=== PATIENT | female | born 1945 | race Hispanic/Latino ===

== ENCOUNTER 2017-06-26 16:42 | Emergency (ER) | payer MEDICARE ==
[2017-06-26 16:43] VITALS: BMI 23.2
[2017-06-26 16:52] VITALS: TEMP 98; O2SAT 98
--- NOTE | 2017-06-26 17:51 | ED PDOC ---
Arrival/HPI <Juan Manuel Vera - Last Filed: 06/26/17 18:39> <Aldo Anglin - Last Filed: 06/26/17 21:26> - General Chief Complaint: Trauma Time Seen by Provider: 06/26/17 16:59 - History of Present Illness Narrative History of Present Illness (Text): 71F c/o pain in her left arm after a fall a couple days ago. she says she was bring her dogs into her apartment when she tripped on a step and fell on her left side. she denies head injury or LOC. she did not want to come in initially but her arm has becoming progressively more painful and swollen. she has taken ibuprofen only for pain. contrary to triage note the pt denies being "more confused than usual." she states she is forgetful at times but that "this is nothing new." (Juan Manuel Vera) Past Medical History - Infectious Disease Hx of Infectious Diseases: None - Cardiac Hx Cardiac Disorders: Yes Hx Pacemaker: No Other/Comment: stents x2 - Pulmonary Hx Respiratory Disorders: No - Neurological Hx Neurological Disorder: No Hx Paralysis: No Other/Comment: increased confusion today 06/26/2017 - HEENT Hx HEENT Disorder: No - Renal Hx Renal Disorder: No - Endocrine/Metabolic Hx Endocrine Disorders: No - Hematological/Oncological Hx Blood Transfusions: No Hx Blood Transfusion Reaction: No - Integumentary Hx Dermatological Disorder: No - Musculoskeletal/Rheumatological Hx Musculoskeletal Disorders: Yes (KNEES) - Gastrointestinal Hx Gastrointestinal Disorders: No - Genitourinary/Gynecological Hx Genitourinary Disorders: No - Psychiatric Hx Psychophysiologic Disorder: No Hx Substance Use: No - Surgical History Hx Cataract Extraction: Yes Hx Coronary Stent: Yes (x2) Other/Comment: stents placed, - Anesthesia Hx Anesthesia: Yes Hx Anesthesia Reactions: No Hx Malignant Hyperthermia: No <Juan Manuel Vera - Last Filed: 06/26/17 18:39> Family/Social History Family/Social History: Other (nc) Smoking Status: Never Smoked Hx Alcohol Use: No Hx Substance Use: No <Juan Manuel Vera - Last Filed: 06/26/17 18:39> Allergies/Home Meds <Juan Manuel Vera - Last Filed: 06/26/17 18:39> <Aldo Anglin - Last Filed: 06/26/17 21:26> Allergies/Adverse Reactions: Allergies acetaminophen [From Percocet] Allergy (Verified 06/26/17 16:51) SHORTNESS OF BREATH adhesive Allergy (Verified 06/26/17 16:51) ITCHING caffeine Allergy (Verified 06/26/17 16:51) SHORTNESS OF BREATH nitroglycerin Allergy (Verified 06/26/17 16:51) SHORTNESS OF BREATH oxycodone [From Percocet] Allergy (Verified 06/26/17 16:51) SHORTNESS OF BREATH Home Medications: Home Meds Medication Instructions Recorded Confirmed Aspirin 325 mg PO DAILY 05/15/13 06/26/17 Furosemide [Lasix] 40 mg PO DAILY 05/15/13 06/26/17 Metoprolol Tartrate [Lopressor] 50 mg PO DAILY 05/15/13 06/26/17 Simvastatin 80 mg PO DAILY 05/15/13 06/26/17 diltiaZEM CD [Cardizem CD] 120 mg PO DAILY 05/15/13 06/26/17 diaZEpam [Valium] 2 mg PO DAILY 06/26/17 06/26/17 Review of Systems - Review of Systems Constitutional: absent: Fevers Respiratory: absent: SOB Cardiovascular: absent: Chest Pain Gastrointestinal: absent: Abdominal Pain, Nausea, Vomiting Musculoskeletal: absent: Back Pain, Neck Pain Neurological: absent: Headache, Dizziness, Focal Weakness <Juan Manuel Vera - Last Filed: 06/26/17 18:39> Physical Exam Vital Signs Reviewed: Yes Appearance: Positive for: Well-Appearing, Non-Toxic, Comfortable Pain Distress: None Mental Status: Positive for: Alert and Oriented X 3 - Systems Exam Head: Present: Atraumatic. No: Tenderness, Contusion, Swelling, Ecchymosis, Abrasion, Laceration Pupils: Present: PERRL Mouth: Present: Moist Mucous Membranes Nose (Internal): No: Epistaxis Neck: Present: Normal Range of Motion. No: MIDLINE TENDERNESS Respiratory/Chest: Present: Clear to Auscultation, Other (ecchymoses left lateral chest wall). No: Respiratory Distress, Accessory Muscle Use Cardiovascular: Present: Regular Rate and Rhythm Abdomen: No: Tenderness, Distention Back: Present: Other (small ecchymosis left mid back). No: Midline Tenderness Upper Extremity: Present: NORMAL PULSES, Neurovascularly Intact, Other (left upper arm is diffusely ecchymotic and LUE is edematous. ROM is decreased due to pain. there is also ecchymosis of the left breast. ) Lower Extremity: Present: NORMAL PULSES, Normal ROM. No: Edema Neurological: Present: GCS=15, CN II-XII Intact, Motor Func Grossly Intact, Normal Sensory Function Skin: Present: Warm, Dry Psychiatric: Present: Alert, Oriented x 3 <Juan Manuel Vera - Last Filed: 06/26/17 18:39> Vital Signs Temp Pulse Resp BP Pulse Ox 06/26/17 20:33 79 16 123/78 98 06/26/17 16:51 98.0 F 82 19 120/71 98 Medical Decision Making <Juan Manuel Vera - Last Filed: 06/26/17 18:39> - RAD Interpretation Substance Abuse Services Director: Radiologist <Aldo Anglin - Last Filed: 06/26/17 21:26> ED Course and Treatment: 06/26/17 18:[address] Clemens- rec CT and sling and he will see in the office tomorrow. Disc plan w pt who v/u and agrees w plan. (Juan Manuel Vera) 06/26/17 19:30 Case endorsed to me from .Pt. with dx. humeral fx. on X-ray.Occurred days ago.Dr. Vera had discussed case with the PMD and orthopedist . requested a CT scan prior to d/c home. 06/26/17 21:[address] scan noted.Results d/w .Again requests pt. be d/c for follow up in his office tomorrow.Arm sling.Non recumbent position at home.Pt. agrees with follow up . (Aldo Anglin) - Lab Interpretations Lab Results: 06/26/17 18:36 06/26/17 18:36 Lab Results 06/26/17 18:36: PT 12.7 H, INR 1.16 H, APTT 22.1 L 06/26/17 18:36: Sodium 138, Potassium 2.8 L* D, Chloride 106, Carbon Dioxide 20 L, Anion Gap 15, BUN 13, Creatinine 0.8, Est GFR ( Amer) > 60, Est GFR ( Non-Af Amer) > 60, Random Glucose 114 H, Calcium 9.7, Total Bilirubin 1.2, AST 47 H, ALT 27, Alkaline Phosphatase 100, Troponin I 0.02, Total Protein 6.9, Albumin 4.2, Globulin 2.8, Albumin/Globulin Ratio 1.5 06/26/17 18:36: WBC 15.3 H D, RBC 3.26 L, Hgb 9.8 L, Hct 29.1 L, MCV 89.3, MCH 30.1, MCHC 33.7, RDW 13.8, Plt Count 373, MPV 9.8, Gran % 81.9 H, Lymph % (Auto ) 6.7 L, [place] % (Auto) 11.1 H, Eos % (Auto) 0.2 L, Baso % (Auto) 0.1, Gran # 12.53 H, Lymph # 1.0 L, [place] # 1.7 H, Eos # 0.0, Baso # 0.01 06/26/17 18:30: Blood Type O POSITIVE, Antibody Screen Negative, BBK History Checked Patient has bt - RAD Interpretation Narrative RAD Interpretations (Text): 06/26/17 21:15 CT Scan-IMPRESSION: 1. There is comminuted fracture of the proximal humerus, with displacement of fracture fragments. There is a fracture and possible erosion of the humeral head, with impaction. There is fracture and displacement of the greater tuberosity. The left femoral neck is fractured. 2. There is widening of the left glenohumeral joint, with inferior subluxation of the humeral head relative to the glenoid process. 3. Multiple mineralized loose bodies are identified surrounding the left shoulder and within the glenohumeral joint, consistent with calcifications and/or fracture fragments. 4. Left acromioclavicular arthropathy is identified. 5. There is soft tissue swelling of the left shoulder. (Aldo Anglin) Radiology Orders: 06/26/17 17:37 HEAD W/O CONTRAST [CT] Stat HUMERUS LEFT [RAD] Stat 06/26/17 17:44 CHEST ONE VIEW [RAD] Stat 06/26/17 18:35 EXT UPPER W/O CONTRAST LEFT [CT] Stat - Medication Orders Current Medication Orders: Discontinued Medications Ibuprofen (Motrin Tab) 800 mg PO STAT STA Stop: 06/26/17 17:40 Last Admin: 06/26/17 17:52 Dose: 800 mg Potassium Chloride (K-Dur 20 Meq Er Tab) 40 meq PO STAT STA Stop: 06/26/17 19:06 Last Admin: 06/26/17 19:17 Dose: 40 meq Disposition/Present on Arrival - Present on Arrival History of DVT/PE: No History of Uncontrolled Diabetes: No Urinary Catheter: No History of Decub. Ulcer: No History Surgical Site Infection Following: None <Juan Manuel Vera - Last Filed: 06/26/17 18:39> - Present on Arrival Any Indicators Present on Arrival: No - Disposition Have Diagnosis and Disposition been Completed?: Yes Disposition Time: 21:25 Patient Plan: Discharge <Aldo Anglin - Last Filed: 06/26/17 21:26> - Disposition Diagnosis: Humerus surgical neck fracture Disposition: HOME/ ROUTINE Condition: STABLE Additional Instructions: Please follow up with Dr Clemens tomorrow: call his office at 10am to make an appointment the same day. Wear your sling and sleep with your upper body upright. Return to the ER for any numbness, weakness, severe pain, or for any other concerns. Referrals: Isaac Clemens DO [Staff Provider] - Follow up with primary Forms: [employer] (Citizen [place])
--- NOTE | 2017-06-26 18:30 | CT ---
PROCEDURE: CT HEAD WITHOUT CONTRAST. HISTORY: fall COMPARISON: None available. TECHNIQUE: Axial computed tomography images were obtained through the head/brain without intravenous contrast. Radiation dose: Total exam DLP = 747 mGy-cm. This CT exam was performed using one or more of the following dose reduction techniques: Automated exposure control, adjustment of the mA and/or kV according to patient size, and/or use of iterative reconstruction technique. FINDINGS: HEMORRHAGE: No intracranial hemorrhage. BRAIN: No mass effect or edema. No atrophy or chronic microvascular ischemic changes. VENTRICLES: Unremarkable. No hydrocephalus. CALVARIUM: Unremarkable. PARANASAL SINUSES: Unremarkable as visualized. No significant inflammatory changes. MASTOID AIR CELLS: Unremarkable as visualized. No inflammatory changes. OTHER FINDINGS: None. IMPRESSION: No acute finding
[2017-06-26 18:58] LABS: ALB/GLOB RATIO 1.5 (1.1-1.8); ALKALINE PHOSPHATASE 100 U/L (38-126); ALT/SGPT 27 U/L (7-56); AST/SGOT 47 U/L (14-36); BILIRUBIN,TOTAL 1.2 mg/dL (0.2-1.3); BLOOD UREA NITROGEN 13 mg/dL (7-21); CALCIUM 9.7 mg/dL (8.4-10.5); CARBON DIOXIDE 20 mmol/L (21-33); CHLORIDE 106 mmol/L (98-107); GFR AFRICAN-AMERICAN > 60; GLUCOSE,RANDOM 114 mg/dL (70-110); SODIUM 138 mmol/L (132-148); TOTAL PROTEIN 6.9 g/dL (5.8-8.3)
[2017-06-26 19:00] LABS: INR 1.16 (0.93-1.08); PARTIAL THROMBOPLASTIN TIME 22.1 Seconds (25.1-36.5)
[2017-06-26] MEDS ORDERED: Potassium Chloride 20 mEq ER Tab PO STA (19:05)
[2017-06-26 19:09] LABS: BASO # 0.01 K/mm3 (0.0-2.0); BASO % 0.1 % (0.0-3.0); EOS % 0.2 % (1.5-5.0); GRAN # 12.53 (1.4-6.5); GRAN % 81.9 % (50.0-68.0); HEMATOCRIT 29.1 % (36.0-48.0); LYMPH % 6.7 % (22.0-35.0); MEAN CELL VOLUME 89.3 fl (80.0-105.0); MEAN CORPUSCULAR HEMOGLOBIN 30.1 pg (25.0-35.0); MEAN CORPUSCULAR HGB CONC 33.7 g/dl (31.0-37.0); MEAN PLATELET VOLUME 9.8 fl (7.0-11.0); MONO # 1.7 (0.1-0.6); MONO % 11.1 % (1.0-6.0); RED CELL DISTRIBUTION WIDTH 13.8 % (11.5-14.5); TROPONIN I 0.02 ng/mL; WHITE BLOOD COUNT 15.3 10^3/ul (4.5-11.0)
[2017-06-26 19:38] LABS: POTASSIUM 2.8 mmol/L (3.6-5.0)
[2017-06-26 20:33] VITALS: BP 123/78; PULSE 79; RESP 16
--- NOTE | 2017-06-26 21:07 | CT ---
EXAM: CT Left Upper Extremity Without Intravenous Contrast, Shoulder EXAM DATE/TIME: 06/26/2017 6:35 PM CLINICAL HISTORY: The patient age is 71 years old and is female; Injury or trauma; Fall; Initial encounter; Blunt trauma (contusions or hematomas; Shoulder; Left; Additional info: Left shoulder fracture, ? dislocation Facility exam id and description: Ct extupsl ext upper w/o contrast left TECHNIQUE: Axial computed tomography images of the left shoulder without intravenous contrast. All CT scans at this facility use one or more dose reduction techniques, viz.: automated exposure control; ma/kV adjustment per patient size (including targeted exams where dose is matched to indication; i.e. head); or iterative reconstruction technique. Coronal and sagittal reformatted images were created and reviewed. COMPARISON: DX - HUMERUS LEFT 2017-06-26 17:52 FINDINGS: Bones/joints: There is comminuted fracture of the proximal humerus, with displacement of fracture fragments. There is a fracture and possible erosion of the humeral head, with impaction. There is fracture and displacement of the greater tuberosity. The left femoral neck is fractured. There is widening of the left glenohumeral joint, with inferior subluxation of the humeral head relative to the glenoid process. Multiple mineralized loose bodies are identified surrounding the left shoulder and within the glenohumeral joint, consistent with calcifications and/or fracture fragments. Left acromioclavicular arthropathy is identified. No visualized acute fracture of the glenoid process, lateral aspect of the clavicle, and acromion process. Soft tissues: There is soft tissue swelling of the left shoulder. IMPRESSION: 1. There is comminuted fracture of the proximal humerus, with displacement of fracture fragments. There is a fracture and possible erosion of the humeral head, with impaction. There is fracture and displacement of the greater tuberosity. The left femoral neck is fractured. 2. There is widening of the left glenohumeral joint, with inferior subluxation of the humeral head relative to the glenoid process. 3. Multiple mineralized loose bodies are identified surrounding the left shoulder and within the glenohumeral joint, consistent with calcifications and/or fracture fragments. 4. Left acromioclavicular arthropathy is identified. 5. There is soft tissue swelling of the left shoulder.
--- NOTE | 2017-06-27 11:00 | RAD ---
PROCEDURE: Radiographs of the left humerus. HISTORY: fall pain COMPARISON: None. FINDINGS: BONES: There is an impacted comminuted fracture of the neck of the humerus. The age of this is uncertain. There are no prior studies SOFT TISSUES: Normal. OTHER FINDINGS: None. IMPRESSION: There is an impacted comminuted fracture of the neck of the humerus. The age of this is uncertain. There are no prior studies
--- NOTE | 2017-06-27 11:01 | RAD ---
PROCEDURE: CHEST RADIOGRAPH, 1 VIEW HISTORY: fall chest contusion COMPARISON: None available. FINDINGS: LUNGS: Clear. PLEURA: No pneumothorax or pleural fluid seen. CARDIOVASCULAR: Normal. OSSEOUS STRUCTURES: No significant abnormalities. VISUALIZED UPPER ABDOMEN: Normal. OTHER FINDINGS: None. IMPRESSION: No active disease.
--- NOTE | 2017-06-27 17:05 | CARD ---
APPROVED REPORT EKG Measurement Heart [id number] <Conclusion> Normal sinus rhythm Left bundle branch block Abnormal ECG
== END 2017-06-26 21:31 | disposition home or self-care (01) ==
LOC: ED 16:42
DX: S42.212A Unspecified displaced fracture of surgical neck of left humerus, initial encounter for closed fracture (principal); W01.0XXA Fall on same level from slipping, tripping and stumbling without subsequent striking against object, initial encounter

== ENCOUNTER 2018-10-09 18:36 | Inpatient (IN) | payer MEDICARE, OTHER ==
[2018-10-09 18:36] VITALS: BMI 23.4
--- NOTE | 2018-10-09 20:34 | ED PDOC ---
Arrival/HPI - General Chief Complaint: Lower Extremity Problem/Injury Time Seen by Provider: 10/09/18 19:33 Historian: Patient - History of Present Illness Narrative History of Present Illness (Text): 10/09/18 20:34 Nilda Riley is a 72 year old female, whose past medical history includes CAD with stents, who presents to the emergency department complaining of left leg pain. Patient states she fell while standing on a step stool tonight. Patient now complaining of left knee pain and swelling. Patient denies any weakness/numbness/tingling in the extremities, other trauma/injuries, or any other complaints. Symptom Onset: Gradual Symptom Course: Unchanged Activities at Onset: Light Context: Home Past Medical History - Provider Review Nursing Documentation Reviewed: Yes - Infectious Disease Hx of Infectious Diseases: None - Cardiac Hx Cardiac Disorders: Yes Hx Pacemaker: No Other/Comment: stents x2 - Pulmonary Hx Respiratory Disorders: No - Neurological Hx Neurological Disorder: No Hx Paralysis: No Other/Comment: increased confusion today 06/26/2017 - HEENT Hx HEENT Disorder: No - Renal Hx Renal Disorder: No - Endocrine/Metabolic Hx Endocrine Disorders: No - Hematological/Oncological Hx Blood Transfusions: No Hx Blood Transfusion Reaction: No - Integumentary Hx Dermatological Disorder: No - Musculoskeletal/Rheumatological Hx Musculoskeletal Disorders: Yes (KNEES) - Gastrointestinal Hx Gastrointestinal Disorders: No - Genitourinary/Gynecological Hx Genitourinary Disorders: No - Psychiatric Hx Psychophysiologic Disorder: No Hx Substance Use: No - Surgical History Hx Cardiac Catheterization: Yes (stents x2) - Anesthesia Hx Anesthesia: Yes Hx Anesthesia Reactions: No Hx Malignant Hyperthermia: No Family/Social History - Physician Review Nursing Documentation Reviewed: Yes Family/Social History: Unknown Family HX Smoking Status: Never Smoked Hx Alcohol Use: No Hx Substance Use: No Allergies/Home Meds Allergies/Adverse Reactions: Allergies acetaminophen [From Percocet] Allergy (Verified 06/26/17 16:51) SHORTNESS OF BREATH adhesive Allergy (Verified 06/26/17 16:51) ITCHING caffeine Allergy (Verified 06/26/17 16:51) SHORTNESS OF BREATH nitroglycerin Allergy (Verified 06/26/17 16:51) SHORTNESS OF BREATH oxycodone [From Percocet] Allergy (Verified 06/26/17 16:51) SHORTNESS OF BREATH Home Medications: Home Meds Medication Instructions Recorded Confirmed Metoprolol Tartrate [Lopressor] 50 mg PO DAILY 05/15/13 10/09/18 diaZEpam [Valium] 2 mg PO BID 06/26/17 10/09/18 Simvastatin [Zocor] 80 mg PO DAILY 07/03/18 10/09/18 Review of Systems - Physician Review All systems were reviewed & negative as marked: Yes - Review of Systems Constitutional: Normal. absent: Fevers Eyes: Normal ENT: Normal Respiratory: Normal. absent: SOB, Cough Cardiovascular: Normal. absent: Chest Pain Gastrointestinal: Normal. absent: Abdominal Pain, Diarrhea, Nausea, Vomiting Genitourinary Female: Normal. absent: Dysuria, Frequency, Hematuria, Urine Output Changes Musculoskeletal: Arthralgias (+left leg pain). absent: Back Pain, Neck Pain Skin: Normal. absent: Rash Neurological: Normal. absent: Headache, Dizziness Endocrine: Normal Hemo/Lymphatic: Normal Psychiatric: Normal Physical Exam Vital Signs Reviewed: Yes Vital Signs Temp Pulse Resp BP Pulse Ox 10/09/18 18:55 97.7 F 70 18 130/82 97 Temperature: Afebrile Blood Pressure: Normal Pulse: Regular Respiratory Rate: Normal Appearance: Positive for: Well-Appearing, Non-Toxic, Comfortable Pain Distress: None Mental Status: Positive for: Alert and Oriented X 3 - Systems Exam Head: Present: Atraumatic, Normocephalic Pupils: Present: PERRL Extroacular Muscles: Present: EOMI Conjunctiva: Present: Normal Mouth: Present: Moist Mucous Membranes Neck: Present: Normal Range of Motion Respiratory/Chest: Present: Clear to Auscultation, Good Air Exchange. No: Respiratory Distress, Accessory Muscle Use Cardiovascular: Present: Regular Rate and Rhythm, Normal S1, S2. No: Murmurs Abdomen: No: Tenderness, Distention, Peritoneal Signs Back: Present: Normal Inspection Upper Extremity: Present: Normal Inspection. No: Cyanosis, Edema Lower Extremity: Present: Swelling (Swelling to left knee). No: Edema Neurological: Present: GCS=15, CN II-XII Intact, Speech Normal Skin: Present: Warm, Dry, Normal Color. No: Rashes Psychiatric: Present: Alert, Oriented x 3, Normal Insight, Normal Concentration Medical Decision Making ED Course and Treatment: Impression: 72 year old female complaining of left knee pain/swelling. Plan: -- EKG -- CXR -- XR Left Femur -- XR Left Tibia/Fibula -- Labs, troponin -- Toradol -- Reassess and disposition Prior Visits: Notes and results from previous visits were reviewed. Progress Notes: 10/09/18 20:25 Reviewed radiology, CXR shows no acute processes. XR Left Femur showed left distal femur fracture. XR Left Tibia/Fibula shows no acute processes. 10/09/18 20:[address] Ortiz, orthopedist, who is aware and agrees to consult on case. Pt placed in knee immobilizer. 10/09/18 21:15 Reviewed EKG, NSR at [address] bpm. LBBB. Non-specific ST/T wave changes. 10/09/18 22:[address] Carranza, who is aware and agrees with plan. Accepts pt in to her service. Pt [facility] be [facility] to [facility] for left femur fracture. - Lab Interpretations I have reviewed the lab results: Yes - RAD Interpretation Radiology Orders: 10/09/18 19:38 Femur Left [FEMUR MIN 2 VIEWS LT] [RAD] Stat 10/09/18 19:39 TIBIA FIBULA LEFT [RAD] Stat Security Auditor: ED Physician - EKG Interpretation Interpreted by ED Physician: Yes Type: 12 lead EKG - Medication Orders Current Medication Orders: Discontinued Medications Ketorolac Tromethamine (Toradol) 15 mg IM STAT STA Stop: 10/09/18 19:40 Last Admin: 10/09/18 19:57 Dose: 15 mg MAR Pain Assessment Document 10/09/18 19:57 AD (Rec: 10/09/18 19:58 AD [id number]) Pain Reassessment Is this a pain reassessment? No Presence of Pain Presence of Pain Yes IM Administration Charges Document 10/09/18 19:57 AD (Rec: 10/09/18 19:58 AD [id number]) Injection Site MAR Injection Site Right Deltoid Charges for Administration # of IM Administrations 1 - Scribe Statement The provider has reviewed the documentation as recorded by the Giacomo Shaver Provider Scribe Attestation: All medical record entries made by the Scribe were at my direction and personally dictated by me. I have reviewed the chart and agree that the record accurately reflects my personal performance of the history, physical exam, medical decision making, and the department course for this patient. I have also personally directed, reviewed, and agree with the discharge instructions and disposition. Disposition/Present on Arrival - Present on Arrival Any Indicators Present on Arrival: No History of DVT/PE: No History of Uncontrolled Diabetes: No Urinary Catheter: No History of Decub. Ulcer: No History Surgical Site Infection Following: None - Disposition Have Diagnosis and Disposition been Completed?: Yes Diagnosis: Femur fracture, left Disposition: HOSPITALIZED Disposition Time: 22:50 Condition: FAIR
[2018-10-09 21:59] LABS: BASO # 0.02 K/mm3 (0.0-2.0); BASO % 0.1 % (0.0-3.0); HEMOGLOBIN 10.9 g/dL (12.0-16.0); LYMPH # 0.9 (1.2-3.4); LYMPH % 4.3 % (22.0-35.0); MEAN CELL VOLUME 87.7 fl (80.0-105.0); MEAN CORPUSCULAR HEMOGLOBIN 29.2 pg (25.0-35.0); MEAN CORPUSCULAR HGB CONC 33.3 g/dl (31.0-37.0); MEAN PLATELET VOLUME 9.3 fl (7.0-11.0); MONO # 1.1 (0.1-0.6); MONO % 5.6 % (1.0-6.0); PLATELET COUNT 332 10^3/uL (120.0-450.0); RBC 3.73 10^6/uL (3.5-6.1); RED CELL DISTRIBUTION WIDTH 14.1 % (11.5-14.5); WHITE BLOOD COUNT 20.4 10^3/uL (4.5-11.0)
[2018-10-09 22:09] LABS: INR 1.12; PARTIAL THROMBOPLASTIN TIME 29.1 Seconds (26.9-38.3); PROTHROMBIN TIME 12.4 SECONDS (9.4-12.5)
[2018-10-09 22:11] LABS: ALB/GLOB RATIO 1.5 (1.1-1.8); ALBUMIN 3.9 g/dL (3.0-4.8); ALT/SGPT 7 U/L (7-56); AST/SGOT 18 U/L (14-36); BLOOD UREA NITROGEN 12 mg/dL (7-21); CALCIUM 9.3 mg/dL (8.4-10.5); GFR NON-AFRICAN AMERICAN > 60
[2018-10-09 22:21] LABS: BAND 1 % (0-2); LYMPHOCYTE 2 % (22.0-35.0); MONOCYTE 5 % (1.0-6.0); NEUTROPHIL 92 % (50.0-70.0)
[2018-10-09] MEDS ORDERED: Potassium Chloride 20 mEq ER Tab PO ONE (22:21)
[2018-10-09 22:22] LABS: PLATELET ESTIMATE NORMAL (NORMAL)
[2018-10-09 22:32] LABS: TROPONIN I < 0.01 ng/mL
[2018-10-09] MEDS ORDERED: Sodium Chloride 0.9% 1,000 ML IV STA (23:32)
[2018-10-10 08:06] LABS: BASO # 0.01 K/mm3 (0.0-2.0); BASO % 0.1 % (0.0-3.0); HEMOGLOBIN 10.1 g/dL (12.0-16.0); LYMPH # 0.6 (1.2-3.4); LYMPH % 5.2 % (22.0-35.0); MEAN CELL VOLUME 87.2 fl (80.0-105.0); MEAN CORPUSCULAR HEMOGLOBIN 30.1 pg (25.0-35.0); MEAN CORPUSCULAR HGB CONC 34.5 g/dl (31.0-37.0); MEAN PLATELET VOLUME 9.2 fl (7.0-11.0); MONO # 0.9 (0.1-0.6); MONO % 7.8 % (1.0-6.0); RBC 3.36 10^6/uL (3.5-6.1); RED CELL DISTRIBUTION WIDTH 14.2 % (11.5-14.5); WHITE BLOOD COUNT 11.8 10^3/uL (4.5-11.0)
--- NOTE | 2018-10-10 08:15 | RAD ---
Date of service: 10/09/2018 PROCEDURE: Radiographs of the left tibia and fibula. HISTORY: fall COMPARISON: None available. TECHNIQUE: Frontal and lateral views obtained. FINDINGS: BONES: No fracture or destructive lesion. JOINT SPACES: No subluxation or dislocation grossly evident at the knee or ankle. 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 OTHER FINDINGS: None. IMPRESSION: No acute fractures identified throughout the left tibia or fibula. Incidental gross degenerative joint disease left knee.
--- NOTE | 2018-10-10 08:17 | RAD ---
Date of service: 10/09/2018 PROCEDURE: Left Femur Radiographs. HISTORY: fall COMPARISON: None. TECHNIQUE: AP and Lateral Radiographs of the left femur. FINDINGS: FEMUR: There is a comminuted fracture of the distal left diametaphysis with lateral angulation of the major distal fracture fragment and proximal distraction several cm. There is also posterior distraction of the major fracture fragment. Proximal and mid femur appear intact although degenerative changes are relatively advanced at the left hip joint. Severe degenerative changes seen at the left knee. SOFT TISSUES: Mild soft tissue edema is seen at local to the fracture site. OTHER FINDINGS: None. IMPRESSION: Comminuted fracture distal left diametaphysis with posterior proximal distraction and mild lateral angulation of the major fracture fragment. Proximal and mid femur appear intact and unremarkable.
[2018-10-10 08:49] LABS: ALB/GLOB RATIO 1.5 (1.1-1.8); ALBUMIN 3.7 g/dL (3.0-4.8); ALT/SGPT < 6 U/L (7-56); AST/SGOT 17 U/L (14-36); BLOOD UREA NITROGEN 16 mg/dL (7-21); CALCIUM 8.9 mg/dL (8.4-10.5); GFR NON-AFRICAN AMERICAN > 60
--- NOTE | 2018-10-10 09:02 | CP.PCM.CON ---
History of Present Illness - History of Present Illness History of Present Illness: Awake, alert, complaining of pain on left hip Reason for consultation:Cardiac evaluation and clearance for left hip surgery Brief history of present illness: A 72 year old female who came in to the ER due to left hip and left knee pain post fall last night. History of coronary artery disease post stents, hyperlipidemia, hypertension, admitted for fractured left hip for surgery today by Dr. Clemens. Seen and examined by me and Dr. Richards Review of Systems - Review of Systems All systems: reviewed and no additional remarkable complaints except Review of Systems: as per HPI Past Patient History - Infectious Disease Hx of Infectious Diseases: None - Past Social History Smoking Status: Never Smoked - CARDIAC Hx Cardiac Disorders: Yes Hx Pacemaker: No Other/Comment: stents x2 - PULMONARY Hx Respiratory Disorders: No - NEUROLOGICAL Hx Neurological Disorder: No Hx Paralysis: No Other/Comment: increased confusion today 06/26/2017 - HEENT Hx HEENT Problems: No - RENAL Hx Chronic Kidney Disease: No - ENDOCRINE/METABOLIC Hx Endocrine Disorders: No - HEMATOLOGICAL/ONCOLOGICAL Hx Blood Transfusions: No Hx Blood Transfusion Reaction: No - INTEGUMENTARY Hx Dermatological Problems: No - MUSCULOSKELETAL/RHEUMATOLOGICAL Hx Musculoskeletal Disorders: Yes (KNEES) - GASTROINTESTINAL Hx Gastrointestinal Disorders: No - GENITOURINARY/GYNECOLOGICAL Hx Genitourinary Disorders: No - PSYCHIATRIC Hx Psychophysiologic Disorder: No Hx Substance Use: No - SURGICAL HISTORY Hx Cardiac Catheterization: Yes (stents x2) - ANESTHESIA Hx Anesthesia: Yes Hx Anesthesia Reactions: No Hx Malignant Hyperthermia: No Meds Allergies/Adverse Reactions: Allergies Allergy/AdvReac Type Severity Reaction Status Date / Time acetaminophen [From Percocet] Allergy SHORTNESS Verified 06/26/17 16:51 OF BREATH adhesive Allergy ITCHING Verified 06/26/17 16:51 caffeine Allergy SHORTNESS Verified 06/26/17 16:51 OF BREATH nitroglycerin Allergy SHORTNESS Verified 06/26/17 16:51 OF BREATH oxycodone [From Percocet] Allergy SHORTNESS Verified 06/26/17 16:51 OF BREATH - Medications Medications: Current Medications Sodium Chloride (Sodium Chloride 0.9%) 1,000 mls @ 60 mls/hr IV .[id number] STA Stop: 10/10/18 16:11 Last Admin: 10/09/18 23:43 Dose: 60 mls/hr Ceftriaxone Sodium (Rocephin 1 Gram Ivpb) 1 gm in 100 mls @ 100 mls/hr IVPB DAILY [facility]; Protocol Stop: 10/14/18 10:59 Metoprolol Tartrate (Lopressor) 50 mg PO DAILY [facility] Physical Exam - Constitutional Appears: Non-toxic, No Acute Distress - Head Exam Head Exam: NORMAL INSPECTION, NORMOCEPHALIC - Eye Exam Eye Exam: Normal appearance Pupil Exam: NORMAL ACCOMODATION - ENT Exam ENT Exam: Mucous Membranes Moist, Normal Exam - Respiratory Exam Respiratory Exam: Clear to Auscultation Bilateral, NORMAL BREATHING PATTERN - Cardiovascular Exam Cardiovascular Exam: +S1, +S2 - GI/Abdominal Exam GI & Abdominal Exam: Normal Bowel Sounds, Soft - Extremities Exam Additional comments: left hip pain, with leg immobilizer - Neurological Exam Neurological exam: Alert, Oriented x3 - Psychiatric Exam Psychiatric exam: Normal Affect, Normal Mood - Skin Skin Exam: Dry, Normal Color, Warm Results - Vital Signs Recent Vital Signs: Last Vital Signs Temp 97.7 F 10/09/18 18:55 Pulse 75 10/10/18 01:20 Resp 18 10/10/18 01:20 BP 132/74 10/10/18 01:20 Pulse Ox 100 10/10/18 01:20 - Labs Result Diagrams: 10/10/18 08:00 10/10/18 08:25 Labs: Laboratory Results - last 24 hr 10/09/18 10/09/18 10/09/18 21:50 21:50 21:50 WBC 20.4 H RBC 3.73 Hgb 10.9 L Hct 32.7 L MCV 87.7 MCH 29.2 MCHC 33.3 RDW 14.1 Plt Count 332 MPV 9.3 Neut % (Auto) 90.0 H Lymph % (Auto) 4.3 L Lawrence % (Auto) 5.6 Eos % (Auto) 0.0 L Baso % (Auto) 0.1 Lymph # (Auto) 0.9 L Lawrence # (Auto) 1.1 H Eos # (Auto) 0.0 Baso # (Auto) 0.02 Absolute Neuts (auto) 18.40 H Neutrophils % (Manual) 92 H Band Neutrophils % 1 Lymphocytes % (Manual) 2 L Monocytes % (Manual) 5 Platelet Evaluation Normal PT 12.4 INR 1.12 APTT 29.1 Sodium 139 Potassium 3.2 L Chloride 108 H Carbon Dioxide 23 Anion Gap 11 BUN 12 Creatinine 0.9 Est GFR ( Amer) > 60 Est GFR (Non-Af Amer) > 60 Random Glucose 125 H Calcium 9.3 Magnesium Total Bilirubin 0.4 AST 18 ALT 7 Alkaline Phosphatase 84 Troponin I < 0.01 D Total Protein 6.5 Albumin 3.9 Globulin 2.5 Albumin/Globulin Ratio 1.5 Crossmatch BBK History Checked 10/10/18 10/10/18 10/10/18 06:27 08:00 08:25 WBC 11.8 H D RBC 3.36 L Hgb 10.1 L Hct 29.3 L MCV 87.2 MCH 30.1 MCHC 34.5 RDW 14.2 Plt Count 284 MPV 9.2 Neut % (Auto) 86.9 H Lymph % (Auto) 5.2 L Lawrence % (Auto) 7.8 H Eos % (Auto) 0.0 L Baso % (Auto) 0.1 Lymph # (Auto) 0.6 L Lawrence # (Auto) 0.9 H Eos # (Auto) 0.0 Baso # (Auto) 0.01 Absolute Neuts (auto) 10.27 H Neutrophils % (Manual) Band Neutrophils % Lymphocytes % (Manual) Monocytes % (Manual) Platelet Evaluation PT INR APTT Sodium 141 Potassium Chloride 111 H Carbon Dioxide 23 Anion Gap 11 BUN 16 Creatinine 0.7 Est GFR ( Amer) > 60 Est GFR (Non-Af Amer) > 60 Random Glucose 130 H Calcium 8.9 Magnesium 1.9 Total Bilirubin 0.6 AST 17 ALT < 6 L Alkaline Phosphatase 77 Troponin I Total Protein 6.1 Albumin 3.7 Globulin 2.4 Albumin/Globulin Ratio 1.5 Crossmatch See Detail BBK History Checked Patient has bt Assessment & Plan - Assessment and Plan (Free Text) Assessment: A 72 year old female who came in to the ER due to left hip and left knee pain post fall last night. History of coronary artery disease post stents of LAD and RCA, hyperlipidemia, hypertension. Left hip X ray showed comminuted fracture diatal left diana metaphysis with posterior proximal distraction and mild lateral angulation of the major fracture fragment. Admitted for fractured left hip for surgery today by Dr. Clemens. Denies chest pain, denies shortness of breath. Troponin normal. No evidence of acute coronary syndrome, no evidence of heart failure.No contraindication for surgery. She is moderate to high risk for surgery considering co-morbidities. Cleared for left hip surgery. Heart rate and blood pressure controlled. Previous cardiac work up in [facility]: 07/03/18- Echo done- LV normal size, borderline concentric left ventricular hypertrophy, proximal septal thickening, systolic function moderately impaired, LVEF 35%, mild AR, mild MR/TR RVSP 31 mmHg, no pericardial effusion or thrombus. 07/03/18- Stress test done- normal LVEF 48% 01/27/14- MUGA scan showed LVEF 40 % moderate diffuse hypokinesis, improved from previous study 05/15/13- cardiac cath done- Patent stent in LAD and RCA, D1 has ostial 80-90% stenosis but not suitable for PCI as it takes off from LAD in stented area, moderately decreased LVEF 35%. Perclose applied, post closure deployment had weaker right distal pulses. 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 Plan: Denies chest pain, denies shortness of breath Cleared for surgery with moderate to high risk For left hip surgery today On Lopressor 50 mg daily Continue Lopressor Continue IV fluids for hydration Continue current treatment Will follow up postoperatively Plan and treatment discussed with Dr. Richards Thank you Dr. Carranza for the opportunity of taking care of Nilda Riley - Date & Time Date: 10/10/18 Time: 09:05
[2018-10-10] MEDS ORDERED: Pneumococcal 23-Valent Vaccine IM ONE (09:08)
[2018-10-10] MEDS ORDERED: Influenza Vaccine 60 mcg/0.5 mL SYR (4YR UP) IM ONE (09:08)
--- NOTE | 2018-10-10 09:28 | RAD ---
Date of service: 10/09/2018 HISTORY: fx COMPARISON: 06/26/2017 FINDINGS: LUNGS: No active pulmonary disease. PLEURA: No significant pleural effusion identified, no pneumothorax apparent. CARDIOVASCULAR: No aortic atherosclerotic calcification present. Mild cardiomegaly. No pulmonary vascular congestion. OSSEOUS STRUCTURES: No significant abnormalities. VISUALIZED UPPER ABDOMEN: Normal. OTHER FINDINGS: None. IMPRESSION: No active disease.
--- NOTE | 2018-10-10 11:30 | CT ---
Date of service: 10/10/2018 PROCEDURE: CT of the left femur HISTORY: fx lt distal femur COMPARISON: X-rays 10/09/2018 TECHNIQUE: Radiation dose: Total exam DLP = 328.16 mGy-cm. This CT exam was performed using one or more of the following dose reduction techniques: Automated exposure control, adjustment of the mA and/or kV according to patient size, and/or use of iterative reconstruction technique. FINDINGS: There is a comminuted displaced overlapping and rotated fracture of the distal femoral shaft. There is a small joint effusion. Degenerative changes are seen in the knee. IMPRESSION: As above
--- NOTE | 2018-10-10 11:46 | CP.PCM.APN ---
Subjective - Date & Time of Evaluation Date of Evaluation: 10/10/18 Time of Evaluation: 11:30 - Subjective Subjective: Pt seen and examined at bedside. C/O R knee pain which she said started today. +nausea no abd pain or vomiting. Objective - Vital Signs/Intake and Output Vital Signs (last 24 hours): Temp Pulse Resp BP Pulse Ox 98 F 77 18 125/76 97 10/10/18 10:03 10/10/18 10:13 10/10/18 10:03 10/10/18 10:13 10/10/18 10:03 - Medications Medications: Current Medications Sodium Chloride (Sodium Chloride 0.9%) 1,000 mls @ 60 mls/hr IV .[id number] STA Stop: 10/10/18 16:11 Last Admin: 10/09/18 23:43 Dose: 60 mls/hr Ceftriaxone Sodium (Rocephin 1 Gram Ivpb) 1 gm in 100 mls @ 100 mls/hr IVPB DAILY [facility]; Protocol Stop: 10/14/18 10:59 Potassium Chloride (Potassium Chloride 10 Meq/100 Ml) 10 meq in 100 mls @ 50 mls/hr IVPB ONCE ONE Stop: 10/10/18 12:50 Last Admin: 10/10/18 11:34 Dose: 50 mls/hr Metoprolol Tartrate (Lopressor) 50 mg PO DAILY [facility] Last Admin: 10/10/18 10:13 Dose: 50 mg Ondansetron HCl (Zofran Inj) 4 mg IVP ONCE ONE Stop: 10/10/18 11:42 - Labs Labs: 10/10/18 08:00 10/10/18 08:25 PT 12.4 SECONDS (9.4-12.5) 10/09/18 21:50 INR 1.12 10/09/18 21:50 APTT 29.1 Seconds (26.9-38.3) 10/09/18 21:50 - Constitutional Appears: No Acute Distress - Head Exam Head Exam: NORMAL INSPECTION - Eye Exam Eye Exam: Normal appearance - Neck Exam Neck Exam: Full ROM - Respiratory Exam Respiratory Exam: Clear to Ausculation Bilateral, NORMAL BREATHING PATTERN - Cardiovascular Exam Cardiovascular Exam: REGULAR RHYTHM, +S1, +S2 - GI/Abdominal Exam GI & Abdominal Exam: Soft, Normal Bowel Sounds - Rectal Exam Rectal Exam: Deferred - Neurological Exam Neurological Exam: Alert, Awake, Oriented x3 Assessment and Plan - Assessment and Plan (Free Text) Assessment: Pt is a 72 y.o. female with pmhx of CAD w/ stents who presented in ED w/ L leg pain s/p fall. Now she is c/o R knee pain. Impressions Femur X-Ray 10/09/18 19:38 IMPRESSION: Comminuted fracture distal left diametaphysis with posterior proximal distraction and mild lateral angulation of the major fracture fragment. Proximal and mid femur appear intact and unremarkable. Tibia/Fibula X-Ray 10/09/18 19:39 IMPRESSION: No acute fractures identified throughout the left tibia or fibula. Incidental gross degenerative joint disease left knee. Chest X-Ray 10/09/18 20:47 IMPRESSION: No active disease. ITS Impressions Femur X-Ray 10/09/18 19:38 IMPRESSION: Comminuted fracture distal left diametaphysis with posterior proximal distraction and mild lateral angulation of the major fracture fragment. Proximal and mid femur appear intact and unremarkable. Tibia/Fibula X-Ray 10/09/18 19:39 IMPRESSION: No acute fractures identified throughout the left tibia or fibula. Incidental gross degenerative joint disease left knee. Chest X-Ray 10/09/18 20:47 IMPRESSION: No active disease. Plan: Poss OR today by Dr. Edmond Pain management Pending XR R knee Meds per MAR Will continue to follow
[2018-10-10 12:41] LABS: URINE BILIRUBIN NEGATIVE (NEGATIVE); URINE BLOOD LARGE (NEGATIVE); URINE GLUCOSE (UA) 100 mg/dL (NEGATIVE); URINE LEUKOCYTE ESTERASE NEGATIVE Leu/uL (NEGATIVE); URINE PROTEIN 30 mg/dL (<30 mg/dL)
--- NOTE | 2018-10-10 12:47 | RAD ---
Date of service: 10/10/2018 PROCEDURE: Right Knee Radiographs. HISTORY: pain COMPARISON: None. FINDINGS: BONES: Normal. No fracture. JOINTS: Severe degenerative changes are seen in the medial joint compartment and the patellofemoral joint. Meniscal calcifications are seen in the lateral compartment without joint space narrowing JOINT EFFUSION: None. OTHER FINDINGS: None. IMPRESSION: Severe degenerative changes are seen in the medial joint compartment and the patellofemoral joint. Meniscal calcifications are seen in the lateral compartment without joint space narrowing
[2018-10-10 12:53] LABS: URINE APPEARANCE CLEAR (CLEAR); URINE COLOR YELLOW (YELLOW)
[2018-10-10 12:59] LABS: URINE BACTERIA LARGE /hpf; URINE RBC 25 - 30 /hpf (0-2)
[2018-10-10 13:00] LABS: URINE AMORPHOUS SEDIMENT MANY /hpf
[2018-10-10] MEDS: cefTRIAXone 1 gm 1 GM/100 ML BAG IVPB SCH (13:35)
[2018-10-10] MEDS ORDERED: Vancomycin 1 g Inj ONE (14:24)
[2018-10-10] MEDS ORDERED: Bupivacaine 0.5% 50 ML IJ ONE (14:24)
[2018-10-10] MEDS ORDERED: Midazolam 2 MG/2 ML VIAL ONE (14:25)
[2018-10-10] MEDS ORDERED: Propofol 10 mg/ml Inj (20 ML) ONE ×2 (14:25→16:27)
[2018-10-10] MEDS ORDERED: Rocuronium 10 mg/ml (5 ml) ONE (14:31)
--- NOTE | 2018-10-10 15:22 | CARD ---
APPROVED REPORT Date of service: 10/09/2018 EKG Measurement Heart [id number] <Conclusion> Normal sinus rhythm Left bundle branch block Abnormal ECG
--- NOTE | 2018-10-10 15:33 | PN ---
DATE: 10/10/2018 SUBJECTIVE: The patient is a 72-year-old seen and examined. She fell of the stool on her left side, was unable to get up; although, she had life alert, but her sister came down incidentally and found her on the floor, called ambulance and was brought to ER and the patient is being scheduled to have open reduction and internal fixation done. PHYSICAL EXAMINATION VITAL SIGNS: She is afebrile, pulse 77, respiration 18 and blood pressure 125/76. LUNGS: Bilateral fair airflow. No rhonchi or crackle. HEART: S1 and S2 audible. ABDOMEN: Soft and nontender. No rebound or guarding. NEUROLOGIC: The patient is awake, alert, oriented and communicative. EXTREMITIES: Her left knee is in immobilizer. LABORATORY DATA: WBC 11.8, hemoglobin 10.1, hematocrit 29.3 and platelet 284. Chemistry; sodium 141, potassium 3.4, chloride 111, CO2 of 23, BUN 16, creatinine 0.7 and blood sugar 130. ASSESSMENT: 1. Status post fall. 2. Distal femur fracture. 3. Hypertension. 4. Coronary artery disease status post angioplasty. 5. Anxiety disorder. 6. Hyperlipidemia. 7. Leukocytosis, etiology unclear yet. PLAN: The patient is being taken to OR for open reduction and internal fixation. Will resume her medication. She is cleared by Cardiology. We will follow up her electrolyte and CBC in a.m. Av Carranza MD
--- NOTE | 2018-10-10 15:35 | CON ---
DATE: 10/10/2018 In room 566, bed 2. HISTORY OF PRESENT ILLNESS: She is a 72-year-old female, slipped and fell at home when she is on the ladder trying to take care of her fan that was giving her problems, ceiling fan. Today, she came in there was a displaced supracondylar fracture of the left distal femur. X-rays do not show intraarticular comminution who planted stabilize her left femur today, once she is medically cleared by Dr. Carranza and Dr. Wiley and Dr. Richards, and bringing her to surgery when the OR opens up, it is 6:00 a.m. now. So, we medicated give her liquid breakfast and plan to do her surgery today by 1:00 to put her intramedullary leeanne. She has good neurovascular status, but she should not be living alone for a while because of when she fell she was alone. Isaac Clemens DO
[2018-10-10] MEDS ORDERED: Neostigmine Methylsulfate 3mg/3ml Syringe IV ONE (16:22)
[2018-10-10] MEDS ORDERED: Glycopyrrolate 0.2 mg/ml (2ml vial) ONE (16:23)
[2018-10-10] MEDS ORDERED: Morphine 4 mg/ml ISec ONE (16:25)
[2018-10-10] MEDS ORDERED: HYDROmorphone 0.5 mg/0.5 ml ISec IVP PRN (16:26)
[2018-10-10] MEDS ORDERED: Morphine 2 mg/ml ISec IVP PRN (16:26)
[2018-10-10] MEDS ORDERED: Lactated Ringer's 1,000 ML IV SCH (16:30)
[2018-10-10] MEDS ORDERED: SIMVASTATIN 80 MG PO SCH (22:00)
[2018-10-11] MEDS: HYDROmorphone 1 mg/ml ISec SC PRN (04:43)
--- NOTE | 2018-10-11 06:59 | CP.PCM.PN ---
Subjective - Date & Time of Evaluation Date of Evaluation: 10/11/18 Time of Evaluation: 06:25 - Subjective Subjective: Awake, alert, no distress Reason for consultation: Cardiac evaluation and clearance for left hip surgery, history of coronary artery disease post stents, hyperlipidemia, hypertension,status post left ORIF with nail Seen and examined by me and Dr. Richards Objective - Vital Signs/Intake and Output Vital Signs (last 24 hours): Temp Pulse Resp BP Pulse Ox 98.8 F 62 20 102/62 96 10/11/18 00:01 10/11/18 00:01 10/11/18 00:01 10/11/18 00:01 10/11/18 00:01 Intake and Output: 10/10/18 10/11/18 18:59 06:59 Intake Total 75 420 Output Total 540 Balance 75 -120 - Medications Medications: Current Medications Aspirin (Ecotrin) 81 mg PO DAILY [facility] Atorvastatin Calcium (Lipitor) 40 mg PO DIN [facility] Last Admin: 10/10/18 19:54 Dose: 40 mg Diazepam (Valium) 2 mg PO BID [facility] Last Admin: 10/10/18 19:54 Dose: 2 mg Diltiazem HCl (Cardizem Cd) 120 mg PO DAILY [facility] Hydromorphone HCl (Dilaudid) 1 mg SC Q4H PRN PRN Reason: Pain, moderate (4-7) Last Admin: 10/11/18 04:43 Dose: 1 mg Ceftriaxone Sodium (Rocephin 1 Gram Ivpb) 1 gm in 100 mls @ 100 mls/hr IVPB DAILY [facility]; Protocol Stop: 10/14/18 10:59 Last Admin: 10/10/18 13:35 Dose: 100 mls/hr Ketorolac Tromethamine (Toradol) 15 mg IM Q6 PRN PRN Reason: Pain, Mild (1-3) Stop: 10/15/18 17:23 Lisinopril (Zestril) 2.5 mg PO DAILY [facility] Metoprolol Tartrate (Lopressor) 50 mg PO DAILY [facility] Last Admin: 10/10/18 10:13 Dose: 50 mg - Labs Labs: 10/10/18 08:00 10/10/18 08:25 PT 12.4 SECONDS (9.4-12.5) 10/09/18 21:50 INR 1.12 10/09/18 21:50 APTT 29.1 Seconds (26.9-38.3) 10/09/18 21:50 - Constitutional Appears: Non-toxic, No Acute Distress - Head Exam Head Exam: NORMAL INSPECTION, NORMOCEPHALIC - Eye Exam Eye Exam: Normal appearance Pupil Exam: NORMAL ACCOMODATION - ENT Exam ENT Exam: Mucous Membranes Moist, Normal Exam - Respiratory Exam Respiratory Exam: Clear to Ausculation Bilateral, NORMAL BREATHING PATTERN - Cardiovascular Exam Cardiovascular Exam: +S1, +S2 - GI/Abdominal Exam GI & Abdominal Exam: Soft, Normal Bowel Sounds - Extremities Exam Additional comments: left hip dressing with leg immobilizer - Neurological Exam Neurological Exam: Alert, Awake - Psychiatric Exam Psychiatric exam: Normal Affect, Normal Mood - Skin Skin Exam: Dry, Normal Color, Warm Assessment and Plan - Assessment and Plan (Free Text) Assessment: A 72 year old female who came in to the ER due to left hip and left knee pain post fall last night. History of coronary artery disease post stents of LAD and RCA, hyperlipidemia, hypertension. Left hip X ray showed comminuted fracture diatal left diana metaphysis with posterior proximal distraction and mild lateral angulation of the major fracture fragment. Admitted for fractured left hip for surgery today by Dr. Clemens. Denies chest pain, denies shortness of breath. Troponin normal. No evidence of acute coronary syndrome, no evidence of heart failure.No contraindication for surgery. She is moderate to high risk for surgery considering co-morbidities. Cleared for left hip surgery. Status post left ORIF with nail POD #1. Cardiac status stable. Pain management.Low H/H, transfuse 2 units PRBC. Lasix 40 mg post transfusion. Previous cardiac work up in [facility] [place]: 07/03/18- Echo done- LV normal size, borderline concentric left ventricular hypertrophy, proximal septal thickening, systolic function moderately impaired, LVEF 35%, mild AR, mild MR/TR RVSP 31 mmHg, no pericardial effusion or thrombus. 07/03/18- Stress test done- normal LVEF 48% 01/27/14- MUGA scan showed LVEF 40 % moderate diffuse hypokinesis, improved from previous study 05/15/13- cardiac cath done- Patent stent in LAD and RCA, D1 has ostial 80-90% stenosis but not suitable for PCI as it takes off from LAD in stented area, moderately decreased LVEF 35%. Perclose applied, post closure deployment had weaker right distal pulses. 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 Plan: Status post left ORIF with nail POD #1. Cardiac status stable Blood pressure controlled Heart rate stable Denies chest pain, denies shortness of breath Low H/H 7.2/21.7 Transfuse 2 units PRBC Lasix 40 mg IV post transfusion. On Lopressor 50 mg daily Continue current treatment Pain management Physical therapy Discontinue telemetry Will follow up Plan and treatment discussed with Dr. Richards
[2018-10-11 07:17] LABS: MEAN CELL VOLUME 88.2 fl (80.0-105.0); MEAN CORPUSCULAR HEMOGLOBIN 29.3 pg (25.0-35.0); MEAN CORPUSCULAR HGB CONC 33.2 g/dl (31.0-37.0); MEAN PLATELET VOLUME 9.1 fl (7.0-11.0); MONO % 9.6 % (1.0-6.0); RBC 2.46 10^6/uL (3.5-6.1); RED CELL DISTRIBUTION WIDTH 14.4 % (11.5-14.5); WHITE BLOOD COUNT 10.7 10^3/uL (4.5-11.0)
[2018-10-11 07:26] LABS: HEMOGLOBIN 7.2 g/dL (12.0-16.0)
[2018-10-11 08:11] LABS: ALB/GLOB RATIO 1.3 (1.1-1.8); ALT/SGPT 13 U/L (7-56); AST/SGOT 26 U/L (14-36); BLOOD UREA NITROGEN 22 mg/dL (7-21); CALCIUM 8.4 mg/dL (8.4-10.5); GFR NON-AFRICAN AMERICAN > 60
--- NOTE | 2018-10-11 08:26 | OP ---
PROCEDURE DATE: 10/10/2018 PREOPERATIVE DIAGNOSIS: The patient is a 72-year-old female who had accident at home when she fell off the ladder on 10/09/2018 and sustained a highly comminuted displaced supracondylar fracture of left distal femur, not intra-articular. POSTOPERATIVE DIAGNOSIS: The patient is a 72-year-old female who had accident at home when she fell off the ladder on 10/09/2018 and sustained a highly comminuted displaced supracondylar fracture of left distal femur, not intra-articular. PROCEDURE: Internal fixation with Biomet retrograde femoral nail using a nail that was 9 mm wide and 340 mm long locked distally with three locking screws and proximally with one locking screw. Extreme osteopenia was a problem also along with comminution. SURGEON: Isaac Clemens DO CORPORATE LEARNING CONSULTANT: Medical student. ANESTHESIA: General endotracheal tube. DESCRIPTION OF PROCEDURE: Summary is as follows: The patient was taken to the OR. Left lower extremity was prepped and draped in a sterile fashion, from the hip down to the foot. X-ray showed that we could reduce the fracture with significant traction and rotation manual. No tourniquet was utilized. After the leg was prepped and draped in a sterile fashion, we made an incision over the patellar tendon going through the patellar tendon bluntly down to the distal femur and anterior to the distal femur in appropriate location just medial to the patellar tendon groove and its line at the distal femur. Once we put the threaded-tip guidewire up to the fracture, then we over reamed with a 13-mm reamer and then put in the beaded-tip guidewire with manual traction, distraction and rotation. We put in the guidewire in to the proximal femur, measured the leeanne to be 36 mm long. Then, we did the appropriate reaming with two reamers of 8 mm and 10.5 mm. Then, we inserted a leeanne that was 340 mm long x 9 mm wide and locked it distally with three locking screws and one locking screw proximal. Four stab wounds were irrigated with saline and closed with riccardo. Then, the patella wound was closed. We approximated the patellar tendon and paratenon and then subcutaneous tissue with a 2-0 Vicryl and the skin with a combination of 2-0 nylon and riccardo. The patient was taken to the recovery room in compression dressing and a knee immobilizer. Isaac Clemens DO
[2018-10-11] MEDS ORDERED: Potassium Chloride 20 mEq ER Tab PO ONE ×3 (09:32→18:45)
[2018-10-11] MEDS: cefTRIAXone 1 gm 1 GM/100 ML BAG IVPB SCH (09:34)
[2018-10-11] MEDS: diltiaZEM 120 mg/24 Hours CD Cap PO SCH (09:36)
[2018-10-11] MEDS: Enoxaparin 30 mg Syringe SC SCH (09:41)
--- NOTE | 2018-10-11 09:41 | RAD ---
Date of service: 10/10/2018 PROCEDURE: Left Knee Radiographs. HISTORY: Pain. COMPARISON: Left femur 10/09/2018 FINDINGS: BONES: Status post ORIF oblique comminuted distal femoral diaphysis fracture. Near anatomic alignment. Medullary leeanne traverses the femoral diaphysis with transverse screws in the distal femoral metaphysis and epiphysis. Postoperative changes in the anterior soft tissues. JOINTS: Normal. No osteoarthritis. JOINT EFFUSION: None. OTHER FINDINGS: None. IMPRESSION: Status post ORIF distal femoral fracture.
[2018-10-11] MEDS ORDERED: diltiaZEM 120 mg/24 Hours CD Cap PO SCH (10:00)
--- NOTE | 2018-10-11 11:08 | RAD ---
Date of service: 10/10/2018 PROCEDURE: Fluoroscopic guidance for left femoral fracture HISTORY: O.R.I.F. OF LEFT FEMUR FX. COMPARISON: Comparison is made with the previous x-ray of the left femur previous CT dated 10/10/2018 TECHNIQUE: Fluoroscopic guidance was providing in the OR for internal fixation of left femur fracture. Total cumulative dose is 15.77 MGy. Fluoroscopic time: 115.8 econd FINDINGS: Fluoroscopic guidance was providing during insertion of intramedullary right through the left femur and insertion of fixation screws in the distal portion of the femur. Distal femur comminuted angulated and displaced fracture is again noted. IMPRESSION: Fluoroscopic guidance during internal fixation of left femur fracture as discussed above.
--- NOTE | 2018-10-11 11:28 | CP.PCM.PCO ---
Physician Communication Note - Physician Communication Note Physician Communication Note: Per Ortho, clear for DC. Pending PT. Hgb 7.2 needs 2U PRBC per cardio.
--- NOTE | 2018-10-11 14:27 | PN ---
DATE: 10/11/2018 LOCATION: Room 268, bed 1. SUBJECTIVE: She underwent open reduction and internal fixation of left distal femur fracture. She is doing well. Her hemoglobin started out at 10 g, hemoglobin went down to 7.2. So, we are going to give her two units of blood and also give her some DVT prophylaxis. Dr. Carranza and Dr. Richards are on the case medically and cardiacwise. Once the blood is in, we will be able to get her up out of bed and consider going to a subacute rehab like [facility] for extensive physical therapy. Isaac Clemens DO
--- NOTE | 2018-10-11 23:44 | PN ---
DATE: 10/11/2018 SUBJECTIVE: The patient is a 72-year-old who had mechanical fall at home and sustained left distal femur fracture. The patient underwent open reduction and internal fixation. Seen and examined this morning. Complained of feeling tired, fatigue, sleepy, but arousable. PHYSICAL EXAMINATION: VITAL SIGNS: The patient is afebrile, pulse 72, respirations 18, and blood pressure 127/54. LUNGS: Bilateral fair airflow. No rhonchi or crackle. HEART: S1 and S2 audible. ABDOMEN: Soft and nontender. No rebound. No guarding. NEUROLOGIC: The patient is awake, alert, oriented, and able to communicate. EXTREMITIES: Left leg is in the immobilizer. LABORATORY DATA: WBC 10.7, hemoglobin 7.2, hematocrit 21.7, and platelets 273. Chemistry; sodium 138, potassium 3.6, chloride 109, CO2 of 22, BUN of 22, creatinine of 0.8, and blood sugar of 106. Urine shows Gram-negative leeanne. Blood cultures are negative. ASSESSMENT: 1. Status post mechanical fall. 2. Left distal femur fracture. 3. Symptomatic anemia. 4. Hypertension. 5. Hyperlipidemia. 6. Coronary artery disease, status post angioplasty. 7. Gram-negative urinary tract infection. PLAN: The patient will receive 2 blood transfusions. We will follow the patient's CBC and CMP in a.m. The patient will , will be out of bed to chair, and according to her performance, we will make disposition plan. The patient is scheduled to be discharge if stable either tomorrow or Sunday. Av Carranza MD
[2018-10-12] MEDS: HYDROmorphone 1 mg/ml ISec SC PRN (05:50)
[2018-10-12 08:02] LABS: HEMOGLOBIN 10.2 g/dL (12.0-16.0); LYMPH # 0.7 (1.2-3.4); MEAN CELL VOLUME 87.6 fl (80.0-105.0); MEAN CORPUSCULAR HEMOGLOBIN 29.4 pg (25.0-35.0); MEAN CORPUSCULAR HGB CONC 33.6 g/dl (31.0-37.0); MEAN PLATELET VOLUME 9.3 fl (7.0-11.0); MONO # 1.3 (0.1-0.6); MONO % 11.3 % (1.0-6.0); RBC 3.47 10^6/uL (3.5-6.1); RED CELL DISTRIBUTION WIDTH 14.1 % (11.5-14.5); WHITE BLOOD COUNT 11.7 10^3/uL (4.5-11.0)
[2018-10-12 08:34] LABS: ALB/GLOB RATIO 1.3 (1.1-1.8); ALBUMIN 3.5 g/dL (3.0-4.8); ALT/SGPT 9 U/L (7-56); AST/SGOT 21 U/L (14-36); BLOOD UREA NITROGEN 17 mg/dL (7-21); CALCIUM 8.6 mg/dL (8.4-10.5); GFR NON-AFRICAN AMERICAN > 60
[2018-10-12] MEDS: diltiaZEM 120 mg/24 Hours CD Cap PO SCH (09:31)
[2018-10-12] MEDS: cefTRIAXone 1 gm 1 GM/100 ML BAG IVPB SCH (09:32)
[2018-10-12] MEDS: Enoxaparin 30 mg Syringe SC SCH (09:32)
--- NOTE | 2018-10-12 16:34 | PN ---
DATE: 10/12/2018 SUBJECTIVE: The patient is 72 years old, seen and examined lying in bed, states, I feel tired. She is sleepy, but arousable. PHYSICAL EXAMINATION: VITAL SIGNS: She is afebrile. Pulse 79, respirations 20, blood pressure 126/65. LUNGS: Bilateral fair airflow. No rhonchi or crackle. HEART: S1, S2 audible. ABDOMEN: Soft, nontender. No rebound. No guarding. NEUROLOGIC: She is awake, alert, oriented, able to communicate. EXTREMITIES: Left knee is in an immobilizer. Knee has a dressing. No active bleeding, +1 edema. LABORATORY DATA: WBC 11.7, hemoglobin 10.2, hematocrit 30.4, platelet 221. Chemistry; sodium 136, potassium 3.4, chloride 107, CO2 of 21, BUN 17, creatinine 0.6, blood sugar 153. Urine shows E. coli sensitive to Rocephin. ASSESSMENT: 1. Status post fall. 2. Left distal femur fracture. 3. Escherichia coli urinary tract infection. 4. Coronary artery disease status post angioplasty. 5. Anemia status post blood transfusion. PLAN: Currently patient is on Cardizem. She is on Dilaudid. She is on aspirin. Her potassium is being supplemented. She is on Lipitor, metoprolol. She is on DVT prophylaxis, 30 mg of Lovenox. She is on Rocephin. She is taking lisinopril. We will follow up patient's CBC and CMP in the a.m. She is advised to be out of bed to chair by orthopedic. We will reevaluate in the a.m., possible plan to transfer to [facility] on Sunday. Av Carranza MD
[2018-10-13 07:54] LABS: EOS % 0.1 % (1.5-5.0); LYMPH # 0.7 (1.2-3.4); LYMPH % 6.2 % (22.0-35.0); MEAN CELL VOLUME 89.1 fl (80.0-105.0); MEAN CORPUSCULAR HEMOGLOBIN 29.6 pg (25.0-35.0); MEAN CORPUSCULAR HGB CONC 33.2 g/dl (31.0-37.0); MEAN PLATELET VOLUME 9.5 fl (7.0-11.0); MONO # 1.1 (0.1-0.6); MONO % 9.8 % (1.0-6.0); RBC 3.38 10^6/uL (3.5-6.1); RED CELL DISTRIBUTION WIDTH 14.1 % (11.5-14.5); WHITE BLOOD COUNT 10.9 10^3/uL (4.5-11.0)
[2018-10-13 08:28] LABS: ALB/GLOB RATIO 1.2 (1.1-1.8); ALBUMIN 3.4 g/dL (3.0-4.8); ALT/SGPT 17 U/L (7-56); AST/SGOT 32 U/L (14-36); BLOOD UREA NITROGEN 13 mg/dL (7-21); CALCIUM 9.1 mg/dL (8.4-10.5); GFR NON-AFRICAN AMERICAN > 60
[2018-10-13] MEDS: diltiaZEM 120 mg/24 Hours CD Cap PO SCH (09:46)
[2018-10-13] MEDS: cefTRIAXone 1 gm 1 GM/100 ML BAG IVPB SCH (09:47)
[2018-10-13] MEDS: Enoxaparin 30 mg Syringe SC SCH (09:47)
--- NOTE | 2018-10-13 21:36 | PN ---
DATE: 10/13/2018 SUBJECTIVE: The patient is a 72-year-old, seen and examined. Lying in bed, seems to be comfortable. More awake and alert. Received two blood transfusions. PHYSICAL EXAMINATION VITAL SIGNS: She is afebrile, pulse 62, respirations 20, blood pressure 149/78. LUNGS: Bilateral fair airflow. No rhonchi or crackle. HEART: S1, S2 audible. ABDOMEN: Soft, nontender. No rebound. No guarding. NEUROLOGIC: The patient is awake, alert, oriented, able to communicate. EXTREMITIES: Able to wiggle both toes. Both feet are warm. LABORATORY DATA: WBC 10.9, hemoglobin 10, hematocrit 30, and platelet 255. Chemistry; sodium 136, potassium 3.3, chloride 106, CO2 of 21, BUN 13, creatinine 0.6, blood sugar 121. Urine positive for E. coli. Blood cultures are negative. ASSESSMENT AND PLAN: 1. Status post fall. 2. Left distal femur fracture. 3. Escherichia coli urinary tract infection. 4. Anemia status post blood transfusion. 5. Hypertension. 6. Coronary artery disease, status post angioplasty. PLAN: So currently, the patient is on diltiazem. She is on aspirin. She is on statin. We will continue metoprolol. She is on DVT prophylaxis. She is getting Rocephin. Her E. coli is sensitive to Cipro. We will discontinue Rocephin and start on Cipro. Out of bed to chair. If the patient remains stable, will be discharged in a.m. to subacute rehab, preferably [facility] since orthopedic can follow her in [facility]. Av Carranza MD
[2018-10-14 07:11] LABS: BASO # 0.02 K/mm3 (0.0-2.0); BASO % 0.2 % (0.0-3.0); EOS # 0.1 (0.0-0.7); EOS % 0.5 % (1.5-5.0); HEMOGLOBIN 9.8 g/dL (12.0-16.0); LYMPH # 1.1 (1.2-3.4); LYMPH % 11.7 % (22.0-35.0); MEAN CELL VOLUME 88.4 fl (80.0-105.0); MEAN CORPUSCULAR HEMOGLOBIN 29.8 pg (25.0-35.0); MEAN CORPUSCULAR HGB CONC 33.7 g/dl (31.0-37.0); MEAN PLATELET VOLUME 9.3 fl (7.0-11.0); MONO % 10.1 % (1.0-6.0); RBC 3.29 10^6/uL (3.5-6.1); RED CELL DISTRIBUTION WIDTH 14.1 % (11.5-14.5); WHITE BLOOD COUNT 9.4 10^3/uL (4.5-11.0)
[2018-10-14 07:18] LABS: ALB/GLOB RATIO 1.2 (1.1-1.8); ALBUMIN 3.4 g/dL (3.0-4.8); ALT/SGPT 33 U/L (7-56); AST/SGOT 49 U/L (14-36); BLOOD UREA NITROGEN 14 mg/dL (7-21); CALCIUM 9.1 mg/dL (8.4-10.5); GFR NON-AFRICAN AMERICAN > 60
[2018-10-14 08:14] VITALS: RESP 18
--- NOTE | 2018-10-14 09:01 | PN ---
DATE: 10/12/2018 SECONDARY POSTOP REPORT She underwent ORIF of her left distal femur fracture on 10/10/2018. She has much less pain hemoglobin is slightly over 10 g. We are going to get her out of bed today, encourage motion and muscles exercise of the both lower extremities and to avoid a pillow under the left knee, but they put under the calf so that we would get straight. She has a tendency to flex her knee because of the osteoarthritis of her left knee, so we have to discourage that and change her dressing. The wounds are dry and we will start physical therapy for up out of bed and range of motion of her left knee, mainly extension exercise of that left arthritic knee and we will start her ambulating when she feels a lot better and she could put touch toe pressure on that left leg with a walker if she could comprehend all that instructions. Isaac Clemens DO
[2018-10-14] MEDS ORDERED: Potassium Chloride 40 mEq/30 ml LIQ UD PO ONE (09:14)
--- NOTE | 2018-10-14 09:29 | CP.PCM.PN ---
Subjective - Date & Time of Evaluation Date of Evaluation: 10/14/18 Time of Evaluation: 07:00 - Subjective Subjective: Awake, alert, no distress Reason for consultation and follow up: Cardiac evaluation and clearance for left hip surgery, history of coronary artery disease post stents, hyperlipidemia, hypertension,status post left ORIF with nail Seen and examined by me and Dr. Richards Objective - Vital Signs/Intake and Output Vital Signs (last 24 hours): Temp Pulse Resp BP Pulse Ox 98 F 67 18 104/54 L 96 10/14/18 06:00 10/14/18 06:00 10/14/18 06:00 10/14/18 06:00 10/14/18 06:00 Intake and Output: 10/14/18 10/14/18 06:59 18:59 Intake Total 120 Output Total 200 Balance -80 - Medications Medications: Current Medications Acetaminophen (Tylenol 325mg Tab) 650 mg PO Q4 PRN PRN Reason: Fever >100.4 F Last Admin: 10/14/18 06:52 Dose: 650 mg Aspirin (Ecotrin) 81 mg PO DAILY [facility] Last Admin: 10/13/18 09:46 Dose: 81 mg Atorvastatin Calcium (Lipitor) 40 mg PO DIN [facility] Last Admin: 10/13/18 17:32 Dose: 40 mg Diazepam (Valium) 2 mg PO BID [facility] Last Admin: 10/13/18 17:32 Dose: 2 mg Diltiazem HCl (Cardizem Cd) 120 mg PO [facility]ILY [facility] Last Admin: 10/13/18 09:46 Dose: 120 mg Enoxaparin Sodium (Lovenox) 30 mg SC DAILY [facility]; Protocol Last Admin: 10/13/18 09:47 Dose: 30 mg Hydromorphone HCl (Dilaudid) 1 mg SC Q4H PRN PRN Reason: Pain, moderate (4-7) Last Admin: 10/12/18 05:50 Dose: 1 mg Ceftriaxone Sodium (Rocephin 1 Gram Ivpb) 1 gm in 100 mls @ 100 mls/hr IVPB [facility]; Protocol Stop: 10/14/18 10:59 Last Admin: 10/13/18 09:47 Dose: 100 mls/hr Ketorolac Tromethamine (Toradol) 15 mg IM Q6 PRN PRN Reason: Pain, Mild (1-3) Stop: 10/15/18 17:23 Lisinopril (Zestril) 2.5 mg PO [facility]ILY [facility] Last Admin: 10/13/18 11:43 Dose: 2.5 mg Metoprolol Tartrate (Lopressor) 50 mg PO [facility]ILY [facility] Last Admin: 10/13/18 11:43 Dose: 50 mg - Labs Labs: 10/14/18 06:40 10/14/18 06:40 PT 12.4 SECONDS (9.4-12.5) 10/09/18 21:50 INR 1.12 10/09/18 21:50 APTT 29.1 Seconds (26.9-38.3) 10/09/18 21:50 - Constitutional Appears: Non-toxic, No Acute Distress - Head Exam Head Exam: NORMAL INSPECTION, NORMOCEPHALIC - Eye Exam Eye Exam: Normal appearance Pupil Exam: NORMAL ACCOMODATION - ENT Exam ENT Exam: Mucous Membranes Moist, Normal Exam - Respiratory Exam Respiratory Exam: Clear to Ausculation Bilateral, NORMAL BREATHING PATTERN - Cardiovascular Exam Cardiovascular Exam: +S1, +S2 - GI/Abdominal Exam GI & Abdominal Exam: Soft, Normal Bowel Sounds - Extremities Exam Additional comments: left hip dressing - Neurological Exam Neurological Exam: Alert, Awake, Oriented x3 - Psychiatric Exam Psychiatric exam: Normal Affect, Normal Mood - Skin Skin Exam: Dry, Normal Color, Warm Assessment and Plan - Assessment and Plan (Free Text) Assessment: A 72 year old female who came in to the ER due to left hip and left knee pain post fall last night. History of coronary artery disease post stents of LAD and RCA, hyperlipidemia, hypertension. Left hip X ray showed comminuted fracture diatal left diana metaphysis with posterior proximal distraction and mild lateral angulation of the major fracture fragment. Admitted for fractured left hip for surgery today by Dr. Clemens. Denies chest pain, denies shortness of breath. Troponin normal. No evidence of acute coronary syndrome, no evidence of heart failure.No contraindication for surgery. She is moderate to high risk for surgery considering co-morbidities. Cleared for left hip surgery. Low H/H postoperatively, transfused 2 units PRBC. Lasix 40 mg post transfusion. Status post left ORIF with nail POD #4. Cardiac status stable. H/H stable. Plan: No distress Status post left ORIF with nail POD #4 Cardiac status stable Blood pressure controlled Heart rate stable Denies chest pain, denies shortness of breath H/H stable Low potassium/replenished On Lopressor 50 mg daily, ASA 81 ng daily,Lipitor 40 mg daily, Cardizem 120 mg daily,Lovenox 30 mg daily, Lisinopril 2.5 mg daily Continue current treatment Pain management Physical therapy Discharge planning Will follow up Plan and treatment discussed with Dr. Richards
[2018-10-14] MEDS: cefTRIAXone 1 gm 1 GM/100 ML BAG IVPB SCH (09:46)
[2018-10-14] MEDS: Enoxaparin 30 mg Syringe SC SCH (09:50)
[2018-10-14] MEDS: diltiaZEM 120 mg/24 Hours CD Cap PO SCH (09:52)
[2018-10-14] MEDS ORDERED: Potassium Chloride 20 mEq ER Tab PO ONE (12:30)
[2018-10-14 14:21] VITALS: BP 130/73; PULSE 79; TEMP 98.4; O2SAT 94
[2018-10-14] MEDS ORDERED: Influenza Vaccine 60 mcg/0.5 mL SYR (4YR UP) IM ONE (15:20)
[2018-10-14] MEDS ORDERED: Pneumococcal 23-Valent Vaccine IM ONE (15:20)
--- NOTE | 2018-10-14 20:36 | DS ---
HISTORY OF PRESENT ILLNESS: The patient is 72 years old, seen and examined. The patient was admitted because of fall from stool, while she was trying to get something from upper shelf. Denies any nausea or vomiting. Eating and tolerating. PHYSICAL EXAMINATION: VITAL SIGNS: The patient is afebrile, pulse 67, respiration 18 and blood pressure 106/60. LUNGS: Bilateral fair airflow. No rhonchi or crackle. HEART: S1 and S2, audible. ABDOMEN: Soft and nontender. No rebound. No guarding. NEUROLOGIC: She is awake, alert and able to communicate. EXTREMITIES: Bilateral leg, no edema. LABORATORY DATA: WBC 9.4, hemoglobin 9.8, hematocrit 29.1 and platelets 283. Chemistry; sodium 136, potassium 3.2, chloride 107, CO2 of 22, BUN 14, creatinine 0.6 and blood sugar 110. ASSESSMENT: 1. Status post fall. 2. Left distal femur fracture. 3. Hypertension. 4. Hyperlipidemia. 5. Coronary artery disease, status post angioplasty. 6. Anemia, secondary to blood loss. Received 2 blood transfusion. PLAN: The patient will be transferred to [facility] today and I will follow her up there. Av Carranza MD
--- NOTE | 2018-10-15 08:25 | PN ---
PROCEDURE DATE: 10/14/2018 LOCATION: In room 578, bed 1. HISTORY OF PRESENT ILLNESS: A 72-year-old female underwent ORIF of highly comminuted displaced distal left femur fracture with a retrograde intramedullary leeanne. She is doing well. The wounds are dry. The surgery was done on the 10/10/2018. She is going to be going to [facility] for further rehab. She does have bilateral knee osteoarthritis which will make the rehab that much more difficult because she has bilateral flexion contracture of the femur fracture about 10-15 degrees. We have encouraged her to keep the knees extended and she can ambulate with a walker, touch toe pressure on the left leg. I will follow her at [facility] when she goes there too. Otherwise, the wounds are dry and has much less pain. Isaac Clemens DO
== END 2018-10-14 16:52 | DRG 481 ==
LOC: ED 18:36 → ERH 23:31 → 5RNO 10-10 01:34 → 2RNO 10-10 18:50 → 5RSO 10-11 23:18
PROVIDERS: ADMIT Internal Medicine; ATTEND Internal Medicine
PROC: 2W3MX1Z Immobilization of Left Lower Extremity using Splint (ICD-10-PCS; 2018-10-09)
PROC: 0QHC06Z Insertion of Intramedullary Internal Fixation Device into Left Lower Femur, Open Approach (ICD-10-PCS; principal; 2018-10-10 13:00)
PROC: 30233N1 Transfusion of Nonautologous Red Blood Cells into Peripheral Vein, Percutaneous Approach (ICD-10-PCS; 2018-10-11)
PROC: 3E0234Z Introduction of Serum, Toxoid and Vaccine into Muscle, Percutaneous Approach (ICD-10-PCS; 2018-10-14)
DX: S72.452A Displaced supracondylar fracture without intracondylar extension of lower end of left femur, initial encounter for closed fracture (principal); N39.0 Urinary tract infection, site not specified; M25.462 Effusion, left knee; M25.562 Pain in left knee; Z79.899 Other long term (current) drug therapy; I25.10 Atherosclerotic heart disease of native coronary artery without angina pectoris; Z95.5 Presence of coronary angioplasty implant and graft; M85.80 Other specified disorders of bone density and structure, unspecified site; D50.0 Iron deficiency anemia secondary to blood loss (chronic); E78.5 Hyperlipidemia, unspecified; F41.9 Anxiety disorder, unspecified; I11.9 Hypertensive heart disease without heart failure; M17.0 Bilateral primary osteoarthritis of knee; B96.20 Unspecified Escherichia coli [E. coli] as the cause of diseases classified elsewhere; W11.XXXA Fall on and from ladder, initial encounter; Z88.5 Allergy status to narcotic agent; Z88.8 Allergy status to other drugs, medicaments and biological substances; Z91.018 Allergy to other foods; Z91.048 Other nonmedicinal substance allergy status; Y92.009 Unspecified place in unspecified non-institutional (private) residence as the place of occurrence of the external cause; I44.7 Left bundle-branch block, unspecified; M17.12 Unilateral primary osteoarthritis, left knee; Z23 Encounter for immunization